=== PATIENT | female | born 1940 | race Caucasian/White ===

== ENCOUNTER 2018-09-19 09:30 | Day surgery (SDC) | payer MEDICARE ==
[2018-09-16 10:20] VITALS: BMI 25.0
[2018-09-19 10:03] LABS: Hemoglobin 15.1 g/dL (12.0-16.0); Mean Corpuscular HGB CONC 33.1 g/dL (32.0-36.0); Mean Corpuscular Hemoglobin 31.2 pg (27.0-31.0); Mean Corpuscular Volume 94.5 fL (78.0-98.0); Mean Platelet Volume 7.9 fL (7.4-10.4); Platelet Count 165 thou/uL (130-400); RBC Distribution Width 11.3 % (11.5-14.5); Red Blood Cell (RBC) Count 4.83 mill/uL (4.20-5.40); White Blood Cell (WBC) Count 7.6 thou/uL (4.8-10.8)
[2018-09-19 10:22] LABS: Anion Gap 12 mmol/L (10-20); BUN (Urea Nitrogen) 18 mg/dL (9.8-20.1); Calc. Creatinine Clearance 59 mL/min (70-130); Calcium 9.6 mg/dL (7.8-10.44); Carbon Dioxide 26 mmol/L (23-31); Chloride 104 mmol/L (98-107); Estimated GFR-MDRD 66; Glucose 103 mg/dL (83-110); Potassium 4.8 mmol/L (3.5-5.1); Sodium 137 mmol/L (136-145)
[2018-09-19] MEDS ORDERED: Fentanyl 100 MCG/2 ML VIAL ONE ×4 (13:39→15:59)
[2018-09-19] MEDS ORDERED: ePHEDrine 50 MG/ML VIAL ONE (15:25)
[2018-09-19] MEDS ORDERED: Dexamethasone 20 MG/5 ML VIAL ONE (15:25)
[2018-09-19] MEDS ORDERED: Glycopyrrolate 0.2 MG/ML 5 ML SYRINGE ONE (15:25)
[2018-09-19] MEDS ORDERED: Rocuronium Bromide 10 MG/ML (10ML VIAL) ONE (15:25)
[2018-09-19] MEDS ORDERED: PROPOFOL 200 MG/20 ML VIAL ONE (15:25)
[2018-09-19] MEDS ORDERED: Lidocaine 1% PF 5 ML VIAL ONE (15:25)
[2018-09-19] MEDS ORDERED: Ondansetron PF 4 MG/2 ML Vial ONE (15:25)
[2018-09-19] MEDS ORDERED: HYDROcodone/Acetaminophen 5/325 mg Tablet ONE ×2 (16:50→17:28)
--- NOTE | 2018-09-19 17:18 | EKG ---
Test Reason : PREOP Blood Pressure : / mmHG Vent. Rate : 079 BPM Atrial Rate : 079 BPM P-R Int : 130 ms QRS Dur : 082 ms QT Int : 362 ms P-R-T Axes : 014 049 021 degrees QTc Int : 415 ms Normal sinus rhythm Normal ECG No previous ECGs available Confirmed by DR. Bijan FLOWER ([id number]) on 09/19/2018 5:18:30 PM Referred By: MARY Confirmed By:DR. Bijan FLOWER
--- NOTE | 2018-09-19 21:30 | OP ---
DATE OF PROCEDURE: 09/19/2018 FICTION WRITER: Lali Sullivan PA-C PROCEDURE: L3-L4 laminectomy. DESCRIPTION OF PROCEDURE: The patient was brought to the operating room and intubated. She was rolled in the prone position on gel-filled chest rolls. An incision was made exposing L3 and L4 and the level was confirmed by x-ray. We performed complete L4 and inferior L3 laminectomy, completely decompressing the neural elements. We explored the left L3-L4 disk space and there was no meaningful lateral bulge. After complete decompression had been secured, the wound was extensively irrigated. MAC hemostasis was secured. Vancomycin powder was applied and the wound was closed in anatomic layers. Job ID: [id number]
== END 2018-09-19 17:45 | disposition home or self-care (01) ==
LOC: SDC 09:30
PROVIDERS: ATTEND Neurological Surgery
PROC: 01NB0ZZ Release Lumbar Nerve, Open Approach (ICD-10-PCS; principal; 2018-09-19)
DX: M48.062 Spinal stenosis, lumbar region with neurogenic claudication (principal); M51.16 Intervertebral disc disorders with radiculopathy, lumbar region; Z79.899 Other long term (current) drug therapy
CPT/HCPCS: 36415; 76000; 80048; 85027; 93005; 93010; J0690; J1100; J2001; J2405; J2704; J3010; J3370; J3490